=== PATIENT | male | born 1935 | race Caucasian/White ===

== ENCOUNTER 2016-08-31 11:18 | Observation (INO) | payer OTHER, MEDICARE ==
[~2016-08-31] VITALS: Ht 180.3 cm; Wt 99.8 kg
[~2016-08-31 11:18] MED LIST: AMLODIPINE BES2.5 MG PO; ASPIR 8181 MG PO; CO-Q-10 100 MG-1 SGL PO; FINASTERIDE5 MG PO; LEVOTHYROXIN0.112 M1 PO; LIPITOR40 M1 PO; LISINOPRIL10 MG PO
--- NOTE | 2016-08-31 11:25 | NUR ---
PT WAS HAVING REHAB AT HOME WHEN HE HAD A SYNCOPAL EPISODE. PER THERAPY THEY TOLD EMS THAT PT HAD TO EPISODES OF SEIZURE LIKE ACTIVITY WHIL LYING ON THE GROUND. PT DID NOT FALL HE WAS GENTLY HELPED TO THE FLOOR. PT DID NOT HIT HIS HEAD AND DOES NOT REMEMBER THE EPISODE. PT ARRIVES ALERT AND ORIENTED OFFERS NO COMPLAINTS.
--- NOTE | 2016-08-31 11:28 | NUR ---
PT STATSE HE HAS BEEN HOME FROM THE HOSPITAL SINCE SUNDAY AND HAS BEEN GETTING PHYSICAL THERAPY AT HOME PT STATES THIS IS THE FIRST TIME HE HAD TO MARCH IN PLACE AND HE STATES HE DID GET DIZZY
--- NOTE | 2016-08-31 11:47 | ED AMS/SEIZURE/WEAK/DIZZY ---
History of Present Illness General Chief Complaint: Syncope and Near-Syncope Stated Complaint: BIBA SYNCOPE Source: patient, family, old records, EMS Exam Limitations: no limitations Vital Signs & Intake/Output Vital Signs & Intake/Output Vital Signs Date Time Temp Pulse Resp B/P Pulse O2 O2 Flow FiO2 Ox Delivery Rate 09/01 1122 76 122/62 ED Intake and Output 09/02 0000 09/01 1200 Intake Total 600 Output Total 900 Balance -300 Intake, IV 500 Intake, Oral 100 Number 0 Bowel Movements Output, Urine 900 Allergies Coded Allergies: No Known Allergies (08/31/16) Reconcile Medications Aspirin (Ecotrin) 81 MG TABLET.DR 1 TAB PO DAILY BLOOD (Reported) Atorvastatin Calcium (Lipitor) 40 MG TABLET 1 TAB PO QPM CHOLESTEROL ( Reported) Finasteride 5 MG TABLET 1 TAB PO DAILY PROSTATE (Reported) Levothyroxine Sodium 0.112 MG TAB 1 TAB PO DAILY AC THYROIDECTOMY (Reported) Lisinopril 10 MG TABLET 1 TAB PO DAILY BP (Reported) Methocarbamol (Robaxin-750) 750 MG TABLET 1 TAB PO Q6-PRN PRN MUSCLE SPASMS ( Reported) Oxycodone HCl 5 MG TABLET 1 TAB PO BIDP PRN PAIN (Reported) Tramadol HCl 50 MG TABLET 1 TAB PO BIDP PRN PAIN (Reported) Triage Note: PT WAS HAVING REHAB AT HOME WHEN HE HAD A SYNCOPAL EPISODE. PER THERAPY THEY TOLD EMS THAT PT HAD TO EPISODES OF SEIZURE LIKE ACTIVITY WHIL LYING ON THE GROUND. PT DID NOT FALL HE WAS GENTLY HELPED TO THE FLOOR. PT DID NOT HIT HIS HEAD AND DOES NOT REMEMBER THE EPISODE. PT ARRIVES ALERT AND ORIENTED OFFERS NO COMPLAINTS. Triage Nurses Notes Reviewed? yes HPI: Patient presents for evaluation of an episode of weakness and dizziness. Patient states that he was doing leg exercises status post right knee replacement when he began feeling very lightheaded. That seemed to pass but he had another more severe episode while talking to the physical therapist and his . He laid down and blood pressure was checked by the physical therapist. Blood pressure was extremely low. At that point the patient had 2-3 episodes of seizure-like activity with no postictal phase. He has had 4 similar episodes in his past history. The knee surgery was 8 days ago. Patient's noted that he had a fever of 100.4 yesterday and also didn't seem to be himself. No associated cold symptoms dysuria or productive cough. Past History Travel History Traveled to [place] past 21 day No Medical History Any Pertinent Medical History? see below for history Neurological: PREVIOUS SYNCOPE X 1 Cardiovascular: hypertension, HIGH CHOLESTEROL Endocrine: NONE (HYPOTHYROIDISM) [employer]ES [employer] CASUALTY INSURANCE/Reproductive: ENLARGED PROSTATE Surgical History Surgical History: non-contributory Psychosocial History What is your primary language Burkin[place] Tobacco Use: Never used ETOH Use: occasional use Illicit Drug Use: denies illicit drug use Family History Hx Contributory? No Review of Systems Review of Systems Constitutional: Reports: no symptoms. EENTM: Reports: no symptoms. Respiratory: Reports: no symptoms. Cardiovascular: Reports: no symptoms. GI: Reports: no symptoms. Genitourinary: Reports: no symptoms. Musculoskeletal: Reports: no symptoms. Skin: Reports: no symptoms. Neurological/Psychological: Reports: no symptoms. Hematologic/Endocrine: Reports: no symptoms. Immunologic/Allergic: Reports: no symptoms. All Other Systems: Reviewed and Negative Physical Exam Physical Exam General Appearance: see below Comments: Gen.: Well-nourished, well-developed, no acute respiratory distress. Head: Normocephalic, atraumatic. Eyes: Normal inspection bilaterally Ears: Normal inspection bilaterally Nose: Normal inspection Throat/mouth : Moist mucosa Neck: Supple, full range of motion, no goiter, equal carotid pulses Heart: Regular rate and rhythm, no murmurs rubs or gallops Lungs: Clear to auscultation bilaterally with normal air entry Chest: Nontender Back: Normal range of motion Abdomen: Soft, nontender, nondistended, normal bowel sounds Extremities: Right knee: Dressing in place with slight erythema surrounding dressing. Diffuse right leg swelling (improving per ) Neurologic: Cranial nerves grossly intact, speech is clear Skin: warm and dry Psychiatric: Calm, cooperative, no apparent delusions or hallucinations Core Measures ACS in differential dx? No CVA/TIA Diagnosis: No Severe Sepsis Present: No Septic Shock Present: No Progress Differential Diagnosis: arrythmia, anemia, CVA/stroke, dehydration, hypoxia, pneumonia, PE Plan of Care: Orders Procedure Date/time Status Therapeutic Exercise X 15 09/01 UNK Complete MOBILITY D/C STATUS 09/01 UNK Complete MOBILITY GOAL STATUS 09/01 UNK Complete MOBILITY CURRENT STATUS 09/01 UNK Complete Gait Training, 15 Min 09/01 UNK Complete PT EVAL LOW COMPLEX 20 MIN 09/01 UNK Complete Discharge Patient 09/01 UNK Active Nursing Misc 09/01 UNK Active Diagnostic Imaging: Discussed w/RAD: Radiology Read, CT Scan. Radiology Impression: PATIENT: JACKELIN NG PRESENT AGE: 81 PATIENT ACCOUNT NO: [id number] : 35 LOCATION: [facility] ORDERING PHYSICIAN: ALIN KAM MD SERVICE DATE: 08/31/16 EXAM TYPE: CAT - CTA CHEST-PULMONARY EMBOLISM EXAMINATION: CT CHEST PE STUDY CLINICAL INFORMATION: Syncope. Hypotension. 8 days postop right knee replacement. Evaluate for pulmonary embolism. COMPARISON: CTA of the chest dated 02/06/2015. TECHNIQUE: Prior to contrast administration, localization images were obtained. After the administration of 120 mL of intravenous Optiray 350, multidetector CT volume acquisition of the chest was performed. 3-D postprocessing was performed with multiplanar reconstructions and MIP images obtained at the acquisition workstation. DLP: 617.61 mGy-cm. FINDINGS: Pulmonary arteries: The bolus timing on this study was acceptable for visualization of the pulmonary arterial tree. There are no intraluminal pulmonary arterial filling defects present to suggest pulmonary embolism in the main pulmonary artery, right and left main pulmonary artery, lobar and segmental branches. Lungs: Minimal bibasilar dependent atelectasis. The lungs are otherwise clear. No pulmonary nodules, masses, pleural effusion or pneumothorax. The central airways are patent. Aorta and heart: The heart is normal in size. There is no pericardial effusion. There is ectasia of the ascending aorta, which measures 3.9 cm in maximal AP diameter at the level of the right main pulmonary artery. Mild atherosclerotic calcifications of the aorta and severe three-vessel coronary artery calcifications are noted. Lymphatic structures: There is no lymphadenopathy. Upper abdomen: There are multiple variably sized low-attenuation masses seen throughout the right and left lobes of the liver, similar to the previous exam, most likely representing multiple small cysts. Largest of these is seen in hepatic segment 8, measuring 4.1 x 2.6 cm. There is a ill-defined 1.6 x 1.2 cm right adrenal low-attenuation mass, similar to the previous study, possibly representing a tiny lipid rich adenoma versus focal nodular hypertrophy. The left adrenal gland is unremarkable. Limited evaluation of the upper abdominal viscera demonstrates no focal abnormality. There is a small retrocardiac hiatal hernia. Bones: There are advanced degenerative changes in both shoulder joints. There is abnormal distention of the right subcoracoid bursa with fluid and a tiny calcific density, possibly representing a small loose body. There is also fluid distention of the right bicipital tendon sheath with small calcifications/ ossifications, consistent with small loose bodies. On the left side, there is a fluid collection seen in the subscapularis recess with associated loose bodies. There is also slight fluid distention of the left bicipital tendon sheath with associated small loose bodies. Multilevel mild vertebral spondylosis throughout the thoracic spine. No suspicious bone findings. IMPRESSION: 1. No evidence of pulmonary embolism. 2. 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 3. Severe coronary artery calcifications. 4. Multiple hepatic cysts and benign-appearing right adrenal mass, likely a small lipid rich adenoma versus focal nodular hypertrophy. 5. Small retrocardiac hiatal hernia. 6. 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 DICTATED BY: LUIS AVENDANO MD DATE/TIME DICTATED:08/31/161320 CHEMISTRY PHYSICS TEACHER:MARAL DATE/TIME TRANSCRIBED:08/31/161320 CONFIDENTIAL, DO NOT COPY WITHOUT APPROPRIATE AUTHORIZATION. <Electronically signed in Other Vendor System> SIGNED BY: LUIS AVENDANO MD 08/31/16 1344 CXR Impression: no acute abnormality Initial ED EKG: normal axis ( ), NSR, LBBB (INCOMPLETE) Prior EKG: changed Rhythm Strip: normal sinus rhythm Departure Departure Disposition: STILL A PATIENT Condition: Stable Clinical Impression Primary Impression: Syncope Qualifiers: Syncope type: unspecified Qualified Code: R55 - Syncope and collapse Referrals: SAJAN WHEELER MD (PCP/Family) Departure Forms: Customer Survey General Discharge Information Observation Note Spoke With: LINCOLN PAUL MD Physician Advisor Notified: MARK ARELLANO,CHRIS [address] Patient In: Non-ED OBS Care Area Rationale for Observation: My rational for observation is as follows: Patient has had a true syncopal episode of an unclear etiology. This raises the concern of a potential dysrhythmia with sudden drop in blood pressure to dangerous levels. Given this patient's advanced age and medical comorbidities I do not feel he is a good candidate for outpatient management at this time. Further syncopal episodes could place the patient at risk of injury. I feel he requires continuous cardiac monitoring for the possibility of dysrhythmia and serial blood pressure determinations, serial troponin determinations and consideration of cardiology and/or neurology consultations. 08/31/16 1234: Magnesium Cancelled 08/31/16 1138: Anion Gap 13, Estimated GFR > 60, BUN/Creatinine Ratio 16.0, Glucose 158 H, Calcium 8.5, Magnesium 2.3, Total Bilirubin 1.2, AST 24, ALT 27, Alkaline Phosphatase 58, Troponin I < 0.01, Total Protein 6.1 L, Albumin 3.3 L, Globulin 2.8, Albumin/Globulin Ratio 1.2, CBC w Diff NO MAN DIFF REQ, RBC 3.52 L, MCV 92.1, MCH 30.9, RDW 13.3, MPV 7.8, Gran % 72.5, Lymphocytes % 15.1 L, Monocytes % 8.3, Eosinophils % 3.6, Basophils % 0.5, Absolute Granulocytes 4.5, Absolute Lymphocytes 0.9 L, Absolute Monocytes 0.5, Absolute Eosinophils 0.2, Absolute Basophils 0, PUBS MCHC 33.5 Microbiology 08/31 1426 URINE ROUT: Urine Culture - RECD 08/31 1357 BLOOD: Blood Culture - RECD 08/31 1335 BLOOD: Blood Culture - RECD Diagnostic Imaging: Discussed w/RAD: CT Scan. Initial ED EKG: normal axis ( ), NSR, LBBB (INCOMPLETE) Prior EKG: changed Rhythm Strip: normal sinus rhythm Departure Departure Disposition: STILL A PATIENT Condition: Stable Clinical Impression Primary Impression: Syncope Qualifiers: Syncope type: unspecified Qualified Code: R55 - Syncope and collapse Referrals: LIAM ARELLANO,SAJAN Mcgowan (PCP/Family) Departure Forms: Customer Survey General Discharge Information Observation Note Spoke With: HUMBERTO ARELLANO,LINCOLN Physician Advisor Notified: MARK ARELLANO,CHRIS [address] Patient In: Non-ED OBS Care Area Rationale for Observation: My rational for observation is as follows: Patient has had a true syncopal episode of an unclear etiology. This raises the concern of a potential dysrhythmia with sudden drop in blood pressure to dangerous levels. Given this patient's advanced age and medical comorbidities I do not feel he is a good candidate for outpatient management at this time. Further syncopal episodes could place the patient at risk of injury. I feel he requires continuous cardiac monitoring for the possibility of dysrhythmia and serial blood pressure determinations, serial troponin determinations and consideration of cardiology and/or neurology consultations.
[2016-08-31 11:49] LABS: ABSOLUTE BASOPHIL COUNT 0 /CUMM (0.0-0.2); ABSOLUTE EOSINOPHIL COUNT 0.2 /CUMM (0.0-0.7); ABSOLUTE GRANULOCYTE CT 4.5 /CUMM (1.4-6.5); ABSOLUTE LYMPH COUNT 0.9 /CUMM (1.2-3.4); ABSOLUTE MONOCYTE COUNT 0.5 /CUMM (0.10-0.60); BASOPHIL % 0.5 % (0.0-2.0); EOSINOPHIL % 3.6 % (0-5); HEMATOCRIT 32.4 % (42-52); MEAN CORPUSCULAR HGB 30.9 PG (27.0-31.0); MEAN CORPUSCULAR HGB CONC 33.5 G/DL (33.0-37.0); MEAN CORPUSCULAR VOLUME 92.1 FL (80.0-94.0); MEAN PLATELET VOLUME 7.8 FL (7.4-10.4); PLATELET COUNT 178 /CUMM (130-400); RBC DISTRIBUTION WIDTH 13.3 % (11.5-14.5); RED BLOOD CELL CT 3.52 /CUMM (4.70-6.10); WHITE BLOOD CELL COUNT 6.3 /CUMM (4.8-10.8)
[2016-08-31 11:51] LABS: GRANULOCYTE % 72.5 % (42.2-75.2)
--- NOTE | 2016-08-31 11:58 | NUR ---
PCXR AT BEDSIDE
--- NOTE | 2016-08-31 12:07 | NUR ---
PT ONTO BEDSIDE COMMODE WITH ASSIST OF 1. OF PT REMAINS IN ROOM WITH PT.
[2016-08-31] MEDS ORDERED: ROBAXIN-750750 M1 PO (12:21)
[2016-08-31] MEDS ORDERED: OXYCODONE HCL5 M1 PO (12:21)
[2016-08-31] MEDS ORDERED: TRAMADOL HCL50 M1 PO (12:21)
--- NOTE | 2016-08-31 12:28 | RADIOLOGY REPORT ---
EXAMINATION: XR PORTABLE CHEST CLINICAL INFORMATION: This is an 81-year-old male with syncope. COMPARISON: Comparison is made to a CT scan of the chest dated 02/06/2015 and a chest x-ray dated 02/05/2015. TECHNIQUE: Portable view of the chest was obtained. A single AP semierect view was obtained. FINDINGS: No pneumothorax is seen. No pleural effusion is identified. No pulmonary consolidation is identified. The pulmonary vascularity appears within normal limits for the technique. IMPRESSION: No active disease on this portable study.
--- NOTE | 2016-08-31 13:44 | CT SCAN REPORT ---
EXAMINATION: CT CHEST PE STUDY CLINICAL INFORMATION: Syncope. Hypotension. 8 days postop right knee replacement. Evaluate for pulmonary embolism. COMPARISON: CTA of the chest dated 02/06/2015. TECHNIQUE: Prior to contrast administration, localization images were obtained. After the administration of 120 mL of intravenous Optiray 350, multidetector CT volume acquisition of the chest was performed. 3-D postprocessing was performed with multiplanar reconstructions and MIP images obtained at the acquisition workstation. DLP: 617.61 mGy-cm. FINDINGS: Pulmonary arteries: The bolus timing on this study was acceptable for visualization of the pulmonary arterial tree. There are no intraluminal pulmonary arterial filling defects present to suggest pulmonary embolism in the main pulmonary artery, right and left main pulmonary artery, lobar and segmental branches. Lungs: Minimal bibasilar dependent atelectasis. The lungs are otherwise clear. No pulmonary nodules, masses, pleural effusion or pneumothorax. The central airways are patent. Aorta and heart: The heart is normal in size. There is no pericardial effusion. There is ectasia of the ascending aorta, which measures 3.9 cm in maximal AP diameter at the level of the right main pulmonary artery. Mild atherosclerotic calcifications of the aorta and severe three-vessel coronary artery calcifications are noted. Lymphatic structures: There is no lymphadenopathy. Upper abdomen: There are multiple variably sized low-attenuation masses seen throughout the right and left lobes of the liver, similar to the previous exam, most likely representing multiple small cysts. Largest of these is seen in hepatic segment 8, measuring 4.1 x 2.6 cm. There is a ill-defined 1.6 x 1.2 cm right adrenal low-attenuation mass, similar to the previous study, possibly representing a tiny lipid rich adenoma versus focal nodular hypertrophy. The left adrenal gland is unremarkable. Limited evaluation of the upper abdominal viscera demonstrates no focal abnormality. There is a small retrocardiac hiatal hernia. Bones: There are advanced degenerative changes in both shoulder joints. There is abnormal distention of the right subcoracoid bursa with fluid and a tiny calcific density, possibly representing a small loose body. There is also fluid distention of the right bicipital tendon sheath with small calcifications/ossifications, consistent with small loose bodies. On the left side, there is a fluid collection seen in the subscapularis recess with associated loose bodies. There is also slight fluid distention of the left bicipital tendon sheath with associated small loose bodies. Multilevel mild vertebral spondylosis throughout the thoracic spine. No suspicious bone findings. IMPRESSION: 1. No evidence of pulmonary embolism. 2. 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 3. Severe coronary artery calcifications. 4. Multiple hepatic cysts and benign-appearing right adrenal mass, likely a small lipid rich adenoma versus focal nodular hypertrophy. 5. Small retrocardiac hiatal hernia. 6. 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
--- NOTE | 2016-08-31 14:37 | NUR ---
PT RESTING ON STRETCHER. ON HEART MONITOR. AT BEDSIDE.
--- NOTE | 2016-08-31 15:12 | History & Physical ---
LORRAINE ARELLANO,[facility] 08/31/16 1512: General Information and HPI MD Statement: I have seen and personally examined JACKELIN NG and documented this H&P. The patient is a 81 year old M who presented with a patient stated chief complaint of transient loss of consciousness while undergoing physical therapy. Source of Information: patient, family, old records Exam Limitations: no limitations History of Present Illness: This is an 81-year-old gentleman who has past medical history of hypertension, hypothyroidism, hyperlipidemia and who recently underwent right knee replacement on 08/23/2016, presented to the emergency department at [facility] on 2016 after experiencing questionable seizure-like activity. Much of the history was obtained from the patient's Mrs. Ng. At approximately 10:15 AM the patient was undergoing physical therapy exercises status post right knee replacement. At this time, the patient began to feel lightheaded and weak. He then sat on a chair where his blood where his reports that he drifted in and out of consciousness. He was responsive although not alert throughout this episode. His blood pressure continued to decline. The patient's stated that the lowest blood pressure recorded was 49/30. During this episode the of the patient states he experienced no changes in speech did not have any evidence of any motor or facial abnormalities. He did not have any bowel or bladder incontinence. And he did not have any episodes of any head trauma. Over the last few days the of the patient reports that he has been febrile and has a temperature of approximately 104F. She also states that the patient has had a few episodes of delirium especially in the early evening. Patient does report of mild right knee discomfort. Discomfort is rated at a 3 out of 10. Responds well to pain medication. The patient denies any chills, nausea, vomiting or chest pain or chest discomfort. He denies any orthopnea or palpitations. Patient's PCP is Dr. Thapa. Allergies/Medications Allergies: Coded Allergies: No Known Allergies (08/31/16) Home Med list Aspirin (Ecotrin) 81 MG TABLET.DR 1 TAB PO DAILY BLOOD (Reported) Atorvastatin Calcium (Lipitor) 40 MG TABLET 1 TAB PO QPM CHOLESTEROL ( Reported) Finasteride 5 MG TABLET 1 TAB PO DAILY PROSTATE (Reported) Levothyroxine Sodium 0.112 MG TAB 1 TAB PO DAILY AC THYROIDECTOMY (Reported) Lisinopril 10 MG TABLET 1 TAB PO DAILY BP (Reported) Methocarbamol (Robaxin-750) 750 MG TABLET 1 TAB PO Q6-PRN PRN MUSCLE SPASMS ( Reported) Oxycodone HCl 5 MG TABLET 1 TAB PO BIDP PRN PAIN (Reported) Tramadol HCl 50 MG TABLET 1 TAB PO BIDP PRN PAIN (Reported) Compliance With Home Meds: GOOD Past History Travel History Traveled to [place] past 21 day No Medical History Neurological: PREVIOUS SYNCOPE X 1 Cardiovascular: hypertension, HIGH CHOLESTEROL Endocrine: NONE (HYPOTHYROIDISM) WATER PURIFIER/Reproductive: ENLARGED PROSTATE Surgical History Surgical History: non-contributory Past Family/Social History Psychosocial History Where do you live? Home Who Do You Live With? spouse Services at Home: None Primary Language: Armenian Smoking Status: Never Smoked ETOH Use: occasional use Illicit Drug Use: denies illicit drug use Functional Ability ADLs Independent: dressing, eating, toileting, bathing. Ambulation: walker IADLs Independent: shopping, housework, finances, food prep, telephone, transportation , medication admin. 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 Denies: chills, malaise. Cardiovascular: Denies: chest pain, orthopena, palpitations, peripheral edema. Respiratory: Denies: cough, hemoptysis, orthopnea, short of breath, sputum production, stridor. GI: Reports: constipation. Denies: abdominal pain, bloating, diarrhea, distention, bowel incontinence, melena. Genitourinary: Denies: discharge, dysuria, frequency, hematuria, hesitation. Musculoskeletal: Reports: joint pain. Skin: Denies: change in skin color, change in hair/nails, erythema. Exam & Diagnostic Data Last 24 Hrs of Vital Signs/I&O Vital Signs Date Time Temp Pulse Resp B/P Pulse O2 O2 Flow FiO2 Ox Delivery Rate 08/31 1330 97.0 75 18 116/71 96 08/31 1126 96.7 79 18 130/60 96 Room Air Intake & Output 08/31 1600 08/31 0800 08/31 0000 Intake Total 0 Output Total Balance 0 Intake, Oral 0 Patient 99.79 kg Weight Physical Exam General Appearance Alert, Oriented X3, Cooperative Lymphatic Cervical nl Cardiovascular Normal S1, Normal S2 Lungs Clear to Auscultation Abdomen Normal Bowel Sounds, Soft, No Tenderness Neurological Normal Gait, Normal Speech Extremities No Clubbing, No Cyanosis, Edema RLE Last 24 Hrs of Labs/[place]: Laboratory Tests 08/31/16 1426: Urine Color YEL, Urine Clarity CLEAR, Urine pH 6.0, Ur Specific [place] 1.010, Urine Protein NEG, Urine Ketones NEG, Urine Nitrite NEG, Urine Bilirubin NEG, Urine Urobilinogen 0.2, Ur Leukocyte Esterase NEG, Ur Microscopic EXAM NOT REQUIRED, Urine Hemoglobin NEG, Urine Glucose NEG 08/31/16 1335: Magnesium 2.3, Troponin I < 0.01 08/31/16 1234: Magnesium Cancelled 08/31/16 1138: Anion Gap 13, Estimated GFR > 60, BUN/Creatinine Ratio 16.0, Glucose 158 H, Calcium 8.5, Magnesium 2.3, Total Bilirubin 1.2, AST 24, ALT 27, Alkaline Phosphatase 58, Troponin I < 0.01, Total Protein 6.1 L, Albumin 3.3 L, Globulin 2.8, Albumin/Globulin Ratio 1.2, CBC w Diff NO MAN DIFF REQ, RBC 3.52 L, MCV 92.1, MCH 30.9, RDW 13.3, MPV 7.8, Gran % 72.5, Lymphocytes % 15.1 L, Monocytes % 8.3, Eosinophils % 3.6, Basophils % 0.5, Absolute Granulocytes 4.5, Absolute Lymphocytes 0.9 L, Absolute Monocytes 0.5, Absolute Eosinophils 0.2, Absolute Basophils 0, PUBS MCHC 33.5 Microbiology 08/31 1426 URINE ROUT: Urine Culture - RECD 08/31 1357 BLOOD: Blood Culture - RECD 08/31 1335 BLOOD: Blood Culture - RECD Diagnostic Data EKG Results Sinus rhythm rate of 76. QTC 446. Questionable ST changes V3 CXR Results SERVICE DATE: 08/31/16-113 EXAM TYPE: RAD - XRY-PORTABLE CHEST XRAY EXAMINATION: XR PORTABLE CHEST CLINICAL INFORMATION: This is an 81-year-old male with syncope. COMPARISON: Comparison is made to a CT scan of the chest dated 02/06/2015 and a chest x-ray dated 02/05/2015. TECHNIQUE: Portable view of the chest was obtained. A single AP semierect view was obtained. FINDINGS: No pneumothorax is seen. No pleural effusion is identified. No pulmonary consolidation is identified. The pulmonary vascularity appears within normal limits for the technique. IMPRESSION: No active disease on this portable study. DICTATED BY: SABIHA PEREZ MD Other Results SERVICE DATE: 08/31/16 EXAM TYPE: CAT - CTA CHEST-PULMONARY EMBOLISM EXAMINATION: CT CHEST PE STUDY CLINICAL INFORMATION: Syncope. Hypotension. 8 days postop right knee replacement. Evaluate for pulmonary embolism. COMPARISON: CTA of the chest dated 02/06/2015. TECHNIQUE: Prior to contrast administration, localization images were obtained. After the administration of 120 mL of intravenous Optiray 350, multidetector CT volume acquisition of the chest was performed. 3-D postprocessing was performed with multiplanar reconstructions and MIP images obtained at the acquisition workstation. DLP: 617.61 mGy-cm. FINDINGS: Pulmonary arteries: The bolus timing on this study was acceptable for visualization of the pulmonary arterial tree. There are no intraluminal pulmonary arterial filling defects present to suggest pulmonary embolism in the main pulmonary artery, right and left main pulmonary artery, lobar and segmental branches. Lungs: Minimal bibasilar dependent atelectasis. The lungs are otherwise clear. No pulmonary nodules, masses, pleural effusion or pneumothorax. The central airways are patent. Aorta and heart: The heart is normal in size. There is no pericardial effusion. There is ectasia of the ascending aorta, which measures 3.9 cm in maximal AP diameter at the level of the right main pulmonary artery. Mild atherosclerotic calcifications of the aorta and severe three-vessel coronary artery calcifications are noted. Lymphatic structures: There is no lymphadenopathy. Upper abdomen: There are multiple variably sized low-attenuation masses seen throughout the right and left lobes of the liver, similar to the previous exam, most likely representing multiple small cysts. Largest of these is seen in hepatic segment 8, measuring 4.1 x 2.6 cm. There is a ill-defined 1.6 x 1.2 cm right adrenal low-attenuation mass, similar to the previous study, possibly representing a tiny lipid rich adenoma versus focal nodular hypertrophy. The left adrenal gland is unremarkable. Limited evaluation of the upper abdominal viscera demonstrates no focal abnormality. There is a small retrocardiac hiatal hernia. Bones: There are advanced degenerative changes in both shoulder joints. There is abnormal distention of the right subcoracoid bursa with fluid and a tiny calcific density, possibly representing a small loose body. There is also fluid distention of the right bicipital tendon sheath with small calcifications/ossifications, consistent with small loose bodies. On the left side, there is a fluid collection seen in the subscapularis recess with associated loose bodies. There is also slight fluid distention of the left bicipital tendon sheath with associated small loose bodies. Multilevel mild vertebral spondylosis throughout the thoracic spine. No suspicious bone findings. IMPRESSION: 1. No evidence of pulmonary embolism. 2. 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 3. Severe coronary artery calcifications. 4. Multiple hepatic cysts and benign-appearing right adrenal mass, likely a small lipid rich adenoma versus focal nodular hypertrophy. 5. Small retrocardiac hiatal hernia. 6. 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 DICTATED BY: JUAN ALBERTO ARELLANO,LUIS Beckman Assessment/Plan Assessment: This is a 81-year-old gentleman with past medical history of hypothyroidism, hyperlipidemia and hypertension who presented to the emergency department with decreased level of consciousness when undergoing an intensive physical therapy session. #Syncopal event likely caused by vasovagal episode Admit patient to telemetry for continuous monitoring. Monitor for any arrhythmias. Given the patient's recent surgical history as well as prolonged immobility and sure a PE is ruled out. Consider venous Doppler if patient continues to experience hypoxia. Neurology consult obtained. Bedside swallow evaluation in ED showed no abnormalities. Neurochecks every 6 hours. Continue atorvastatin 80 mg. Aspirin 81 mg in a.m. Carotid ultrasound to rule out any stenosis. Check orthostatics. #Right knee pain status post recent knee replacement. Owing to the fact that the patient recently got a knee replacement, continue pain medications Tylenol when necessary as needed. Patient states he avoids opiate medications given side effect profile. Consider PT and OT eval in a.m. #History coronary artery disease and mild aortic dilatation Serial troponins and EKG. Initial EKG less than 0.01, 0.01, 0.01. No signs of cardiac ischemia. Cardiology consult in a.m. Echocardiogram to assess left ventricular function and output. #History of hypothyroidism Check TSH and free T4. Continue levothyroxine #History of hypertension Continue Lee . Maintain permissive hypertension for now do not cause blood pressure to come down below 140/90. #History of BPH Continue finasteride #DVT prophylaxis Lovenox #Diet Heart healthy #Code Full code As Ranked By This Provider Problem List: 1. Syncope Qualifiers Syncope type: unspecified Qualified Code: R55 - Syncope and collapse 2. Orthostatic hypotension 3. Hypertension 4. BPH (benign prostatic hyperplasia) 5. Hyperlipidemia 6. Hypothyroid Core Measures/Miscellaneous Acute Coronary Syndrome ACS Diagnosis: No Cerebrovascular Accident CVA/TIA Diagnosis: No Congestive Heart Failure CHF Diagnosis: No Venous Thromboembolism VTE Risk Factors: Age > 40 VTE Prophylaxis Ordered Inpt: [facility]- [facility] prophylaxis d/t: No contraindications No VTE Pharm Prophylaxis d/t: No contraindications VTE Diagnosis: No VTE Type: NONE VTE Confirmed by (Test): NONE Severe Sepsis Severe Sepsis Present: No Septic Shock Septic Shock Present: No Miscellaneous Documentation Attending Case Discussed With: ABDULKADIR CONNER MD Primary Care Physician: SAJAN THAPA MD Patient sees these Specialists Dr Morales Level of Patient Care: Telemetry ABDULKADIR CONNER MD 08/31/16 2311: Attending MD Review Statement Attending Statement Attending Statement: examined this patient, discuss w/resident/PA/CONCRETE SCULPTOR, agreed w/resident/PA/CONCRETE SCULPTOR, discussed with family, reviewed EMR data (avail), discussed with nursing, reviewed images, amended to note Attending Assessment/Plan: The patient is an 81 yo male with h/o HTN, HL, and hypothyroidism who is status post recent right TKR (08/23/16). He presented in the ED after a syncopal event that occurred during physical therapy at home. The patient had prior sessions without event. He states that the therapist was attempting a new movement. He describes feeling transiently lightheaded and then ther was transient loss of conscious. He states he was only out for a few seconds. Denies headache, fever, chills, dyspnea, cough, abd pain. Continues to have mild right leg swelling. Physical Exam: VS: T 97, P 75, R 18, BP 116/71, PO 96% RA HEENT: eyes- , EOMI corbin- moist mucosa, no lesions Neck: no bruits or JVD Chest: clear Cor: RR, nl S1, S2 w/o murm Abd: BS+, soft, NT Ext: mild RLE edema (compared to left)- s/p TKR Neuro: alert & oriented x 3, no focal motions. Labs/Tests- as above. Impression:Plan: #Syncopal Event- the patient describes transient loss of conscious after working with physical therapist at home. The patient described lightheadedness. EKG w/o abnormality. No focal neuro findings at present. The patient states no bladder or bowel incontinence, however PT as per ED note suggested "seizure like" activity? Pulmonary embolism is in differential (1 week post op- not on anticoagulation). Not likely to represent seizure, most likely some tonic movements related to vasovagal syncope Plan: Admit to Telemetry Observation- observe for arrhythmia. Neuro checks Q4h Swallow eval done in ED- OK to eat Neurology evaluation- ? EEG (doubt seizure)- will defer to outpatient if stable over night. Continue Aspirin. Cardiology evaluation Dr. Morales in morning. #S/P Right TKR- some mild pain/edema- only on ASA therapy. Venous US and CTPA negative for clot. Plan: Continue PT as inpatient. #Hyperlipidemia- on Atorvastatin. Plan: Continue Atorvastatin. #HTN- on Lisinopril. BP good. Plan: Continue Lisinopril. #BPH- on finasteride. Plan: Continue finasteride. #Hypothyroid- clinically euthyroid on Levothyroxine. Plan: Continue Levothyroxine.
--- NOTE | 2016-08-31 15:34 | NUR ---
NS INFUSING AT 100ML/HR.
--- NOTE | 2016-08-31 15:41 | NUR ---
PT TAKEN TO ULTRASOUND AT THIS TIME VIA STRETCHER.
--- NOTE | 2016-08-31 16:00 | NUR ---
PT RETURNED TO ROOM. HOUSESTAFF AT BEDSIDE.
[2016-08-31 16:34] VITALS: BP 121/57
--- NOTE | 2016-08-31 16:56 | NUR ---
FAMILY AT BEDSIDE.
--- NOTE | 2016-08-31 17:16 | ULTRASOUND REPORT ---
EXAMINATION: DUPLEX BILATERAL CAROTID ULTRASOUND CLINICAL INFORMATION: Syncope COMPARISON: None. TECHNIQUE: Duplex bilateral carotid US was performed using real-time ultrasound and Doppler techniques (integrating B-mode 2D vascular images, Doppler spectral analysis and color flow Doppler imaging). These techniques were utilized to interrogate the extracranial carotid and vertebral arteries bilaterally. The degree of stenosis is based off criteria similar to NASCET. FINDINGS: 1. On the right: No plaque is present at the carotid bifurcation and all velocity measurements are normal and do not suggest a stenosis of greater than 50% diameter reduction in the right ICA. The vertebral artery is patent demonstrating antegrade flow. The external carotid on the right shows no significant stenosis. 2. On the left: Plaque is present at the carotid bifurcation but velocity measurements are normal and do not suggest a stenosis of greater than 50% diameter reduction in the left ICA. The vertebral artery is patent demonstrating antegrade flow. The external carotid artery on the left shows no significant stenosis. IMPRESSION: There is plaque present in the left internal carotid artery with normal velocities consistent with a minimal 0-49% stenosis. The right side is normal with no plaque seen.
--- NOTE | 2016-08-31 18:02 | NUR ---
SST SENT TO LAB.
--- NOTE | 2016-08-31 18:22 | NUR ---
DIETARY CALLED FOR DINNER TRAY.
--- NOTE | 2016-08-31 18:50 | NUR ---
FOOD TRAY DELIVERED.
--- NOTE | 2016-08-31 19:19 | NUR ---
REPORT GIVEN TO PAN ALONSO.
--- NOTE | 2016-08-31 20:06 | NUR ---
PT C/O /10 LEG PAIN. PT MEDICATED WITH 1 MG MORPHINE PER ORDER.
--- NOTE | 2016-08-31 21:29 | NUR ---
PT HAS BED ASSIGNMENT 178-1
--- NOTE | 2016-08-31 22:10 | NUR ---
PT REPORTS PAIN DECREASING AFTER BEING MEDICATED. PT APPEARS COMFORTABLE. NO APPARENT DISTRESS
[2016-08-31 22:43] VITALS: BP 122/60
--- NOTE | 2016-08-31 23:10 | Admission Certification ---
Admission Certification Certification Statement - As attending physician, I certify that at the time of - admission, based on clinical presentation, severity of - symptoms, need for further diagnostic testing and - therapeutic interventions, and risk of adverse outcomes - without in-hospital treatment, in my clinical assessment, - this patient requires an acute hospital stay for a minimum - of two nights or longer. I have also considered psychsocial - factors such as support system, advanced age, financial - issues, cognitive issues, and failed out-patient treatments, - past re-admission history, safety of patient, and lack of - compliance as applicable. Specific rationale supporting this admission is: The patient is s/p transient syncope at home when working with PT. S/P recent right TKR. Needs observation for further events, arrhytmias.
--- NOTE | 2016-08-31 23:36 | NUR ---
PT ARRIVED AT ABOUT 2225 FROM ED. HE IS A+OX3. DENIES PAIN. LS CTA. NIH SCORE IS ZERO. NO FACIAL DROOP NOTED. +CMS TO RLE. DRESSING TO R KNEE IS CDI. BED ALARM PLACED FOR SAFETY HOWEVER PT DENIES DIZZINESS. NPO PER ORDERS. URINAL GIVEN. CALL LIGHT IN REACH.
[2016-09-01 00:14] VITALS: BP 108/68
--- NOTE | 2016-09-01 06:40 | PN- Housestaff ---
[facility]LLAN[facility] 09/01/16 0639: Subjective Follow-up For: Syncope likely vasovagal versus orthostatic. Hypothyroidism Tele-Events Since Last Visit: Sinus 1 deg HB 68-78 UT interval 0.24 Few PVC overnight. Subjective: Mr Ng was seen and examined this morning. He is resting comfortably on the chair beside his bed. He reports no acute issues overnight. Denies any episodes of lightheadedness and or transient loss of consciousness. Patient states that he was able to sleep well. This morning the patient was able to ambulate with PT and denies any lightheadedness, chest pain or discomfort. The patient denies any fever, chills, nausea, vomiting. He expresses his desire to be discharged as soon as possible. Review of Systems Constitutional: Reports: see HPI. Denies: chills, diaphoresis, fever, malaise. Objective Last 24 Hrs of Vital Signs/I&O Vital Signs Date Time Temp Pulse Resp B/P Pulse O2 O2 Flow FiO2 Ox Delivery Rate 09/01 0805 98.3 68 20 122/64 95 Room Air 09/01 0014 98.1 68 20 108/68 95 Room Air 08/31 2243 98.5 69 20 122/60 95 Room Air 08/31 2126 98.1 73 20 121/68 96 Room Air 08/31 2006 96.9 61 16 110/65 96 08/31 1634 71 121/57 08/31 1634 98.5 71 16 121/57 95 Room Air 08/31 1330 97.0 75 18 116/71 96 08/31 1126 96.7 79 18 130/60 96 Room Air Intake & Output 09/01 1600 09/01 0800 09/01 0000 Intake Total 600 60 Output Total 900 220 Balance -300 -160 Intake, IV 500 Intake, Oral 100 60 Number 0 Bowel Movements Output, Urine 900 220 Patient 99.79 kg Weight Physical Exam General Appearance: Alert, Oriented X3, Cooperative, No Acute Distress Lymphatic: Cervical nl Cardiovascular: Regular Rate, Normal S1, Normal S2, No Murmurs Lungs: Clear to Auscultation Abdomen: Normal Bowel Sounds, Soft, No Tenderness, No Hepatospenomegaly Neurological: Normal Gait, Normal Speech, Edema RLE 2+ Current Medications: Current Medications Sig/[place] Start time Last Medication Dose Route Stop Time Status Admin Acetaminophen 650 MG Q6P PRN 08/31 1515 AC PO Acetaminophen/ 1 TAB Q6P PRN 08/31 1515 AC Hydrocodone Bitart PO Amlodipine Besylate 2.5 MG DAILY 09/01 1000 AC PO Aspirin Buffered 81 MG DAILY 09/01 1000 AC PO Atorvastatin Calcium 40 MG QPM 08/31 2200 AC 08/31 PO 2256 Diphenhydramine HCl 25 MG Q6P PRN 08/31 1515 AC PO Docusate Sodium 100 MG BID 08/31 2200 AC 08/31 PO 2256 Enoxaparin Sodium 40 MG DAILY 09/01 1000 AC SC Finasteride 5 MG DAILY 09/01 1000 AC PO Levothyroxine Sodium 0.112 MG DAILY AC 09/01 0700 AC 09/01 PO 0641 Lisinopril 10 MG DAILY 09/01 1000 AC PO Methocarbamol 750 MG Q6-PRN PRN 08/31 1530 AC PO Morphine Sulfate 0 .STK-MED ONE 08/31 2000 DC .ROUTE Morphine Sulfate 1 MG Q4P PRN 08/31 1515 AC 08/31 IV 2001 Polyethylene Glycol 17 GM AT BEDTIME 08/31 2200 AC PO Prochlorperazine 10 MG Q6P PRN 08/31 1515 AC IV Senna/Docusate Sodium 1 TAB AT BEDTIME 08/31 2200 AC 08/31 PO 2256 Sodium Chloride 1,000 ML ONCE ONE 08/31 1530 DC 08/31 IV 09/01 0129 1534 Last 24 Hrs of Lab/Colton Results Last 24 Hrs of Labs/Mics: Laboratory Tests 09/01/16 0610: Anion Gap 10, Estimated GFR > 60, BUN/Creatinine Ratio 16.7, Magnesium 2.3 08/31/16 1757: Troponin I < 0.01 08/31/16 1426: Urine Color YEL, Urine Clarity CLEAR, Urine pH 6.0, Ur Specific [place] 1.010, Urine Protein NEG, Urine Ketones NEG, Urine Nitrite NEG, Urine Bilirubin NEG, Urine Urobilinogen 0.2, Ur Leukocyte Esterase NEG, Ur Microscopic EXAM NOT REQUIRED, Urine Hemoglobin NEG, Urine Glucose NEG 08/31/16 1335: Magnesium 2.3, Troponin I < 0.01 08/31/16 1234: Magnesium Cancelled 08/31/16 1138: Anion Gap 13, Estimated GFR > 60, BUN/Creatinine Ratio 16.0, Glucose 158 H, Calcium 8.5, Magnesium 2.3, Total Bilirubin 1.2, AST 24, ALT 27, Alkaline Phosphatase 58, Troponin I < 0.01, Total Protein 6.1 L, Albumin 3.3 L, Globulin 2.8, Albumin/Globulin Ratio 1.2, CBC w Diff NO MAN DIFF REQ, RBC 3.52 L, MCV 92.1, MCH 30.9, RDW 13.3, MPV 7.8, Gran % 72.5, Lymphocytes % 15.1 L, Monocytes % 8.3, Eosinophils % 3.6, Basophils % 0.5, Absolute Granulocytes 4.5, Absolute Lymphocytes 0.9 L, Absolute Monocytes 0.5, Absolute Eosinophils 0.2, Absolute Basophils 0, PUBS MCHC 33.5 Microbiology 08/31 1426 URINE ROUT: Urine Culture - RECD 08/31 1357 BLOOD: Blood Culture - RECD 08/31 1335 BLOOD: Blood Culture - RECD Orders Radiology Findings: PATIENT: JACKELIN NG PRESENT AGE: 81 PATIENT ACCOUNT NO: [id number] : 35 LOCATION: [facility] ORDERING PHYSICIAN: MARIAM ANGELO MD SERVICE DATE: 08/31/16- EXAM TYPE: US - [id number] DOPPLER EXAMINATION: DUPLEX BILATERAL CAROTID ULTRASOUND CLINICAL INFORMATION: Syncope COMPARISON: None. TECHNIQUE: Duplex bilateral carotid US was performed using real-time ultrasound and Doppler techniques (integrating B-mode 2D vascular images, Doppler spectral analysis and color flow Doppler imaging). These techniques were utilized to interrogate the extracranial carotid and vertebral arteries bilaterally. The degree of stenosis is based off criteria similar to NASCET. FINDINGS: 1. On the right: No plaque is present at the carotid bifurcation and all velocity measurements are normal and do not suggest a stenosis of greater than 50% diameter reduction in the right ICA. The vertebral artery is patent demonstrating antegrade flow. The external carotid on the right shows no significant stenosis. 2. On the left: Plaque is present at the carotid bifurcation but velocity measurements are normal and do not suggest a stenosis of greater than 50% diameter reduction in the left ICA. The vertebral artery is patent demonstrating antegrade flow. The external carotid artery on the left shows no significant stenosis. IMPRESSION: There is plaque present in the left internal carotid artery with normal velocities consistent with a minimal 0-49% stenosis. The right side is normal with no plaque seen. DICTATED BY: SHAKIRA REYNOLDS MD DATE/TIME DICTATED:08/31/161710 CLERICAL RECEPTIONIST:MRAAL DATE/TIME TRANSCRIBED:08/31/161710 CONFIDENTIAL, DO NOT COPY WITHOUT APPROPRIATE AUTHORIZATION. <Electronically signed in Other Vendor System> SIGNED BY: SHAKIRA REYNOLDS MD 08/31/16 8942 Assessment/Plan Assessment: This is a 81-year-old gentleman with past medical history of hypothyroidism, hyperlipidemia and hypertension who presented to the emergency department with decreased level of consciousness when undergoing an intensive physical therapy session. #Syncopal event likely caused by vasovagal episode No arrhythmias find overnight. Admit patient to telemetry for continuous monitoring. Monitor for any arrhythmias. Given the patient's recent surgical history as well as prolonged immobility and sure a PE is ruled out. Consider venous Doppler if patient continues to experience hypoxia. Neurology consult obtained. Neurochecks every 6 hours. Continue atorvastatin 80 mg. Aspirin 81 mg in a.m. Check orthostatics, patient was negative, when checking orthostatics. #Right knee pain status post recent knee replacement. Owing to the fact that the patient recently got a knee replacement, continue pain medications Tylenol when necessary as needed. Pain well-controlled this a.m. Patient states he avoids opiate medications given side effect profile. Consider PT patient was able to ambulate with physical therapy and did not have any episodes of syncope. #History coronary artery disease and mild aortic dilatation Serial troponins and EKG. Initial EKG less than 0.01, 0.01, 0.01. No signs of cardiac ischemia. Cardiology evaluated the patient and said he stable for discharge. No further inpatient workup needed. Patient will be advised to follow-up with the cardiology service in 1 week. #History of hypothyroidism Check TSH and free T4. Continue levothyroxine #History of hypertension Continue Lee, blood pressure well-controlled 122/64 #History of BPH Patient denies any symptoms of dysuria and/or pain. Continue finasteride #DVT prophylaxis Lovenox #Diet Heart healthy #Code Full code Problem List: 1. Syncope 2. Orthostatic hypotension Pain Ratin Pain Location: Right Knee Pain Goal: Remain pain free Pain Plan: tylenol PRN Tomorrow's Labs & Rationales: ABDULKADIR BEAVERS MD 09/01/16 1602: Attending MD Review Statement Attending Statement Attending MD Statement: examined this patient, discuss w/resident/PA/CLIENT SUPPORT REPRESENTATIVE, agreed w/resident/PA/CLIENT SUPPORT REPRESENTATIVE, reviewed EMR data (avail), discussed with nursing, discussed with case mgmt, amended to note Attending Assessment/Plan: The patient was seen and discussed with house staff. Appreciate Cardiology input. Unlikely to represent seizure- most likely some movements related to syncope.
[2016-09-01 08:05] VITALS: BP 122/64
--- NOTE | 2016-09-01 08:47 | Patient Discharge Instructions ---
Discharge Instructions General Discharge Information You were seen/treated for: Altered Mental Status/ Decrease in consciousness Watch for these problems: Fever, nausea, vomiting, chills, weakness, increased generalized edema. Palpitations. Chest pain. Shortness of breath. If you have any adverse reactions from any of the medications prescribed please inform your primary care physician and you may be required to come back to the emergency department. Thank you for letting us be part of your care. Special Instructions: Please follow-up with your primary care physician on 09/04/2016. This is for a post hospital discharge follow-up. Please follow-up with the taper and floater Dr Morales on 09/08/2016. We have provided you with a referral. You might be considered for additional testing. Please follow-up with the Neurologist Dr Mcneil on 09/15/2016. We have provided you with a referral. You might be considered for additional testing. Diet Continue normal diet: Yes Activity Full Activity/No Limits: No Activity Self Limited: Yes (As Tolerated) Acute Coronary Syndrome Inclusion Criteria At DC or during hospital stay patient has or had the following: ACS DIAGNOSIS No Discharge Core Measures Meds if any: Prescribed or Continued at Discharge Meds if any: NOT Prescribed or Continued at Discharge Congestive Heart Failure Inclusion Criteria At DC or during hospital stay patient has or had the following: CHF DIAGNOSIS No Discharge Core Measures Meds if any: Prescribed or Continued at Discharge Meds if any: NOT Prescribed or Continued at Discharge Cerebrovascular accident Inclusion Criteria At DC or during hospital stay patient has or had the following: CVA/TIA Diagnosis No Discharge Core Measures Meds if any: Prescribed or Continued at Discharge Meds if any: NOT Prescribed or Continued at Discharge Venous thromboembolism Inclusion Criteria VTE Diagnosis No VTE Type NONE VTE Confirmed by (Test) NONE Discharge Core Measures - Per Current guidelines, there needs to be overlap - treatment for the first 5 days of Warfarin therapy. - If discharged on Warfarin prior to 5 days of - overlap therapy, the patient will need to be - assessed for post discharge needs including - *Post discharge parental anticoagulation - *Warfarin and/or parental anticoagulation education - *Follow up date to check INR post discharge At least 5 days overlap therapy as Inpatient No Meds if any: Prescribed or Continued at Discharge Note: Overlap Therapy is Warfarin and Anticoagulant Meds if any: NOT Prescribed or Continued at Discharge
[2016-09-01 11:22] VITALS: BP 122/62
--- NOTE | 2016-09-01 12:33 | Cons- Cardiology ---
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 He recently underwent right TKR and was doing physical therapy at home. They asked him to try a new exercise by marching his feet. After this exercise he began to feel light headed and had a brief LOC, reported as a few seconds. Was noted to be hypotensive as well. No incontinence, might have had some occasional twitching movements. No confusion. Denied any chest pain, dyspnea, palpitations, AYOUB, slurred speech, visual changes, or focal weakness. No cough, PND, orthopnea. Feels at baseline now. He did have an episode of syncope 1 year ago in the setting of dehydration. Allergies/Medications Allergies: Coded Allergies: No Known Allergies (08/31/16) Home Med List: Aspirin (Ecotrin) 81 MG TABLET.DR 1 TAB PO DAILY BLOOD (Reported) Atorvastatin Calcium (Lipitor) 40 MG TABLET 1 TAB PO QPM CHOLESTEROL ( Reported) Finasteride 5 MG TABLET 1 TAB PO DAILY PROSTATE (Reported) Levothyroxine Sodium 0.112 MG TAB 1 TAB PO DAILY AC THYROIDECTOMY (Reported) Lisinopril 10 MG TABLET 1 TAB PO DAILY BP (Reported) Methocarbamol (Robaxin-750) 750 MG TABLET 1 TAB PO Q6-PRN PRN MUSCLE SPASMS ( Reported) Oxycodone HCl 5 MG TABLET 1 TAB PO BIDP PRN PAIN (Reported) Tramadol HCl 50 MG TABLET 1 TAB PO BIDP PRN PAIN (Reported) Current Medications: Current Medications Sig/[place] Start time Last Medication Dose Route Stop Time Status Admin Acetaminophen 650 MG Q6P PRN 08/31 1515 AC PO Acetaminophen/ 1 TAB Q6P PRN 08/31 1515 AC Hydrocodone Bitart PO Amlodipine Besylate 2.5 MG DAILY 09/01 1000 AC PO Aspirin Buffered 81 MG DAILY 09/01 1000 AC 09/01 PO 1121 Atorvastatin Calcium 40 MG QPM 08/31 2200 AC 08/31 PO 2256 Diphenhydramine HCl 25 MG Q6P PRN 01/12 1515 AC PO Docusate Sodium 100 MG BID 08/31 2200 AC 08/31 PO 2256 Enoxaparin Sodium 40 MG DAILY 09/01 1000 AC SC Finasteride 5 MG DAILY 09/01 1000 AC 09/01 PO 1122 Levothyroxine Sodium 0.112 MG DAILY AC 09/01 0700 AC 09/01 PO 0641 Lisinopril 10 MG DAILY 09/01 1000 AC 09/01 PO 1122 Methocarbamol 750 MG Q6-PRN PRN 08/31 1530 AC PO Morphine Sulfate 0 .STK-MED ONE 08/31 1999 DC .ROUTE Morphine Sulfate 1 MG Q4P PRN 08/31 1515 AC 08/31 IV 2001 Polyethylene Glycol 17 GM AT BEDTIME 08/31 2200 AC PO Prochlorperazine 10 MG Q6P PRN 08/31 1515 AC IV Senna/Docusate Sodium 1 TAB AT BEDTIME 08/31 2200 AC 08/31 PO 2256 Sodium Chloride 1,000 ML ONCE ONE 08/31 1530 DC 08/31 IV 09/01 0129 1534 Review of Systems Review of Systems: Review of systems as per HPI. The remainder of a 10 point review of systems was reviewed and was otherwise negative. Past History Travel History Traveled to [place] past 21 day No Medical History Blood Transfusion Hx: No Neurological: PREVIOUS SYNCOPE X 1 EENT: NONE Cardiovascular: hypertension, HIGH CHOLESTEROL Respiratory: NONE Gastrointestinal: NONE Hepatic: NONE Renal: NONE Musculoskeletal: NONE Psychiatric: NONE Endocrine: NONE (HYPOTHYROIDISM) Blood Disorders: NONE Cancer(s): NONE FACILITY SECURITY OFFICER/Reproductive: ENLARGED PROSTATE Surgical History Surgical History: non-contributory Psychosocial History Where Do You Live? Home Who Do You Live With? spouse Services at Home: None Primary Language: Dutch Smoking Status: Never Smoked ETOH Use: occasional use Illicit Drug Use: denies illicit drug use Functional Ability ADLs Independent: dressing, eating, toileting, bathing. Ambulation: walker IADLs Independent: shopping, housework, finances, food prep, telephone, transportation , medication admin. 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 Exam & Diagnostic Data Vital Signs and I&O Vital Signs Date Time Temp Pulse Resp B/P Pulse O2 O2 Flow FiO2 Ox Delivery Rate 09/01 1122 76 122/62 09/01 0805 98.3 68 20 122/64 95 Room Air 01/13 0800 Room Air 09/01 0014 98.1 68 20 108/68 95 Room Air 08/31 2243 98.5 69 20 122/60 95 Room Air 08/31 2126 98.1 73 20 121/68 96 Room Air 08/31 2006 96.9 61 16 110/65 96 08/31 1634 71 121/57 08/31 1634 98.5 71 16 121/57 95 Room Air 08/31 1330 97.0 75 18 116/71 96 Intake & Output 09/01 1600 09/01 0809/01 0000 08/31 1600 08/31 0000 Intake Total 600 60 0 Output Total 900 220 Balance -300 -160 0 Intake, IV 500 Intake, Oral 100 60 0 Number 0 Bowel Movements Output, Urine 900 220 Patient 220 lb 220 lb Weight Physical Exam: General: no apparent distress. Alert. Eyes: No obvious scleral icterus. HEENT: No jugular venous distention or abnormal jugular venous pulsations. Cardiovascular: Normal intensity S1/S2. Regular. Respiratory: Lungs clear to auscultation bilaterally. Abdomen: Soft, nontender with no guarding or rebound tenderness. Musculoskeletal: No clubbing or cyanosis noted, right lower extremity edema noted Skin: Warm Neurologic: No gross focal deficits noted. Lymph: No gross lymphadenopathy. Labs/Colton Results: Laboratory Tests 09/01 08/31 08/31 08/31 0610 1757 1426 1335 Chemistry Sodium (137 - 145 mmol/L) 139 Potassium (3.5 - 5.1 mmol/L) 4.3 Chloride (98 - 107 mmol/L) 102 Carbon Dioxide (22 - 30 mmol/L) 27 Anion Gap (5 - 16) 10 BUN (9 - 20 mg/dL) 15 Creatinine (0.7 - 1.2 mg/dL) 0.9 Estimated GFR (>60 ml/min) > 60 BUN/Creatinine Ratio (7 - 25 %) 16.7 Magnesium (1.6 - 2.3 mg/dL) 2.3 2.3 Troponin I (<0.11 ng/ml) < 0.01 < 0.01 Urines Urine Color (YEL,AMB,STR) YEL Urine Clarity (CLEAR) CLEAR Urine pH (5.0 - 8.0) 6.0 Ur Specific [place] (1.001 - 1.035) 1.010 Urine Protein (NEG,<30 MG/DL) NEG Urine Ketones (NEG) NEG Urine Nitrite (NEG) NEG Urine Bilirubin (NEG) NEG Urine Urobilinogen (0.1 - 1.0 EU/dl) 0.2 Ur Leukocyte Esterase (NEG) NEG Ur Microscopic EXAM NOT REQUIRED Urine Hemoglobin (NEG) NEG Urine Glucose (N MG/DL) NEG 08/31 08/31 1234 1138 Chemistry Sodium (137 - 145 mmol/L) 139 Potassium (3.5 - 5.1 mmol/L) 4.3 Chloride (98 - 107 mmol/L) 99 Carbon Dioxide (22 - 30 mmol/L) 26 Anion Gap (5 - 16) 13 BUN (9 - 20 mg/dL) 16 Creatinine (0.7 - 1.2 mg/dL) 1.0 Estimated GFR (>60 ml/min) > 60 BUN/Creatinine Ratio (7 - 25 %) 16.0 Glucose (65 - 99 mg/dL) 158 H Calcium (8.4 - 10.2 mg/dL) 8.5 Magnesium (1.6 - 2.3 mg/dL) Cancelled 2.3 Total Bilirubin (0.2 - 1.3 mg/dL) 1.2 AST (17 - 59 U/L) 24 ALT (21 - 72 U/L) 27 Alkaline Phosphatase (< 127 U/L) 58 Troponin I (<0.11 ng/ml) < 0.01 Total Protein (6.3 - 8.2 g/dL) 6.1 L Albumin (3.5 - 5.0 g/dL) 3.3 L Globulin (1.9 - 4.2 gm/dL) 2.8 Albumin/Globulin Ratio (1.1 - 2.2 %) 1.2 Hematology CBC w Diff NO MAN DIFF REQ WBC (4.8 - 10.8 /CUMM) 6.3 RBC (4.70 - 6.10 /CUMM) 3.52 L Hgb (14.0 - 18.0 G/DL) 10.9 L Hct (42 - 52 %) 32.4 L MCV (80.0 - 94.0 FL) 92.1 MCH (27.0 - 31.0 PG) 30.9 RDW (11.5 - 14.5 %) 13.3 Plt Count (130 - 400 /CUMM) 178 MPV (7.4 - 10.4 FL) 7.8 Gran % (42.2 - 75.2 %) 72.5 Lymphocytes % (20.5 - 51.1 %) 15.1 L Monocytes % (1.7 - 9.3 %) 8.3 Eosinophils % (0 - 5 %) 3.6 Basophils % (0.0 - 2.0 %) 0.5 Absolute Granulocytes (1.4 - 6.5 /CUMM) 4.5 Absolute Lymphocytes (1.2 - 3.4 /CUMM) 0.9 L Absolute Monocytes (0.10 - 0.60 /CUMM) 0.5 Absolute Eosinophils (0.0 - 0.7 /CUMM) 0.2 Absolute Basophils (0.0 - 0.2 /CUMM) 0 PUBS MCHC (33.0 - 37.0 G/DL) 33.5 Diagnostic Data EKG Results Tracing was personally reviewed and shows SR at 72 bpm with IVCD CXR Results IMPRESSION: No active disease on this portable study. Other Results 1. No evidence of pulmonary embolism. 2. 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 3. Severe coronary artery calcifications. 4. Multiple hepatic cysts and benign-appearing right adrenal mass, likely a small lipid rich adenoma versus focal nodular hypertrophy. 5. Small retrocardiac hiatal hernia. 6. 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 Assessment/Plan Assessment/Plan 1. Syncope, likely orthostatic versus vasovagal episode 2. Recent elective TKR 3. Hx mild aortic dilatation 4. Hx CAD/silent ME by Nuclear stress 5. HTN/HLD Patient's brief LOC with transient hypotension while doing new physical therapy exercise is consistent with orthostatic versus vasovagal episode, now resolved. No evidence of ACS, PE, obstructive carotid stenosis, or stroke at this time. Telemetry shows no significant events. ECG has IVCD which is chronic. No further inpatient cardiac work-up is required at this time. He should follow-up with us within 1 week of discharge for continued evaluation but will return to the ER via 911 with any new or recurrent symptoms. Discussed LE exercises prior to standing to help prevent orthostasis. Poncho Logan MD FACC Consult Acknowledgment - Thank you for your consult request.
--- NOTE | 2016-09-01 14:21 | ELECTROENCEPHALOGRAM REPORT ---
Electroencephalogram Report ELECTROENCEPHALOGRAM RESULTS Date of service: 09/01/16 Ordering Provider: Dk Nelson MD CORK COMPOUNDER: SHALOM Baum EEG NUMBER: [id number] TEST UTILIZES: 10-20 system, 21-lead 18 channel digital EEG recording PERTINENT HX/PHYSICAL/NEURO FINDINGS/CLINICAL DIA-year-old patient being evaluated for seizure versus syncope MEDICATIONS: Finasteride, amlodipine, lisinopril, aspirin, levothyroxine, atorvastatin INTERPRETATION: The background is composed of well-formed moderate amplitude posterior 9 Hz alpha which attenuates on eye opening. Low voltage faster beta activity is intermixed and seen best in the frontal regions. There are no focal, lateralized or epileptiform abnormalities. In drowsiness there is intermixed slower theta activity. Hyperventilation was deferred but photic stimulation was performed and adds no additional information IMPRESSION: Normal EEG in the states of wakefulness and drowsiness. No focal or epileptiform abnormalities identified.
--- NOTE | 2016-09-01 17:18 | Discharge Summary ---
Visit Information Visit Dates Admission Date: 08/31/16 Discharge Date: 09/01/16 Hospital Course Course Attending Physician: ABDULKADIR CONNER MD Primary Care Physician: SAJAN WHEELER MD Hospital Course: Mr Ng is a 81-year-old gentleman with past medical history of hypothyroidism, hyperlipidemia and hypertension who presented to the emergency department following a syncopla event when undergoing an intensive physical therapy session. He was admitted to our service and below is a summary of the care he received under us. #Syncopal event likely caused by vasovagal episode The patient was admitted to the telemetry service for continuous monitoring. We continued the patient on his Aspirin and Atorvastatin. On day two of admission, we obtained a cardiology consultation, who recommended no further cardiac work up was warranted. The patient was discharged with instructions to follow up within one week. While the patient was also admitted, he also underwent an EEG, this showed no evidence of any focal or epileptiform abnormalities. Prior to discharge, the patient orthostatics were checked. These were negative. #Right knee pain status post recent knee replacement. Owing to the fact that the patient recently got a knee replacement, we managed the patients pain with a combination of Vicodin and Tylenol. The patient also underwent a CTA to rule out a PE given his risk factors. Prior to discharge, the patient worked with physical therapy. #History coronary artery disease and mild aortic dilatation We trended the patients serial troponins and EKG. His troponins were non contributory and EKGs did not revel any evidence of ischemic changes. #History of hypothyroidism We continued the patient on his daily dose of Levothyroxine 0.112 mg. #History of hypertension We continued the patient on his daily dose of Lisinopril 10 mg. #History of BPH We continued the patient on Finasteride 5mg. Allergies: Coded Allergies: No Known Allergies (08/31/16) Pertinent Lab Results: [place] [address] DEPARTMENT OF NEUROLOGY ELECTROENCEPHALOGRAM REPORT Patient Name: JACKELIN NG Location: [facility] Date of : 35 Unit Number: [id number] Sex: M Age: 81 Electroencephalogram Report ELECTROENCEPHALOGRAM RESULTS Date of service: 09/01/16 Ordering Provider: Dk Nelson MD ADMINISTRATIVE COORDINATOR: SHALOM Baum EEG NUMBER: [id number] TEST UTILIZES: 10-20 system, 21-lead 18 channel digital EEG recording PERTINENT HX/PHYSICAL/NEURO FINDINGS/CLINICAL DIA-year-old patient being evaluated for seizure versus syncope MEDICATIONS: Finasteride, amlodipine, lisinopril, aspirin, levothyroxine, atorvastatin INTERPRETATION: The background is composed of well-formed moderate amplitude posterior 9 Hz alpha which attenuates on eye opening. Low voltage faster beta activity is intermixed and seen best in the frontal regions. There are no focal, lateralized or epileptiform abnormalities. In drowsiness there is intermixed slower theta activity. Hyperventilation was deferred but photic stimulation was performed and adds no additional information IMPRESSION: Normal EEG in the states of wakefulness and drowsiness. No focal or epileptiform abnormalities identified. DICTATED BY: HORACE ARELLANO,NENA Cooper DATE/TIME DICTATED:09/01/161413 APPLIANCE SERVICE REPRESENTATIVE:CARLOS DATE/TIME TRANSCRIBED:09/01/161413 REPORT NUMBER:[id number] CONFIDENTIAL, DO NOT COPY WITHOUT APPROPRIATE AUTHORIZATION. <Electronically signed by NENA VU MD> 09/01/16 1421 CC: SAJAN WHEELER MD Order #: Accession #: Report #: [id number] Page[p pg] Patient Name: JACKELIN NG Location: [facility] Date of : 35 Unit Number: [id number] Sex: M Age: 81 Electroencephalogram Report ELECTROENCEPHALOGRAM RESULTS Date of service: 09/01/16 Ordering Provider: Dk Nelson MD ADMINISTRATIVE COORDINATOR: SHALOM Baum EEG NUMBER: [id number] TEST UTILIZES: 10-20 system, 21-lead 18 channel digital EEG recording PERTINENT HX/PHYSICAL/NEURO FINDINGS/CLINICAL DIA-year-old patient being evaluated for seizure versus syncope MEDICATIONS: Finasteride, amlodipine, lisinopril, aspirin, levothyroxine, atorvastatin INTERPRETATION: The background is composed of well-formed moderate amplitude posterior 9 Hz alpha which attenuates on eye opening. Low voltage faster beta activity is intermixed and seen best in the frontal regions. There are no focal, lateralized or epileptiform abnormalities. In drowsiness there is intermixed slower theta activity. Hyperventilation was deferred but photic stimulation was performed and adds no additional information IMPRESSION: Normal EEG in the states of wakefulness and drowsiness. No focal or epileptiform abnormalities identified. DICTATED BY: NENA VU MD SERVICE DATE: 08/31/16 EXAM TYPE: CAT - CTA CHEST-PULMONARY EMBOLISM EXAMINATION: CT CHEST PE STUDY CLINICAL INFORMATION: Syncope. Hypotension. 8 days postop right knee replacement. Evaluate for pulmonary embolism. COMPARISON: CTA of the chest dated 02/06/2015. TECHNIQUE: Prior to contrast administration, localization images were obtained. After the administration of 120 mL of intravenous Optiray 350, multidetector CT volume acquisition of the chest was performed. 3-D postprocessing was performed with multiplanar reconstructions and MIP images obtained at the acquisition workstation. DLP: 617.61 mGy-cm. FINDINGS: Pulmonary arteries: The bolus timing on this study was acceptable for visualization of the pulmonary arterial tree. There are no intraluminal pulmonary arterial filling defects present to suggest pulmonary embolism in the main pulmonary artery, right and left main pulmonary artery, lobar and segmental branches. Lungs: Minimal bibasilar dependent atelectasis. The lungs are otherwise clear. No pulmonary nodules, masses, pleural effusion or pneumothorax. The central airways are patent. Aorta and heart: The heart is normal in size. There is no pericardial effusion. There is ectasia of the ascending aorta, which measures 3.9 cm in maximal AP diameter at the level of the right main pulmonary artery. Mild atherosclerotic calcifications of the aorta and severe three-vessel coronary artery calcifications are noted. Lymphatic structures: There is no lymphadenopathy. Upper abdomen: There are multiple variably sized low-attenuation masses seen throughout the right and left lobes of the liver, similar to the previous exam, most likely representing multiple small cysts. Largest of these is seen in hepatic segment 8, measuring 4.1 x 2.6 cm. There is a ill-defined 1.6 x 1.2 cm right adrenal low-attenuation mass, similar to the previous study, possibly representing a tiny lipid rich adenoma versus focal nodular hypertrophy. The left adrenal gland is unremarkable. Limited evaluation of the upper abdominal viscera demonstrates no focal abnormality. There is a small retrocardiac hiatal hernia. Bones: There are advanced degenerative changes in both shoulder joints. There is abnormal distention of the right subcoracoid bursa with fluid and a tiny calcific density, possibly representing a small loose body. There is also fluid distention of the right bicipital tendon sheath with small calcifications/ossifications, consistent with small loose bodies. On the left side, there is a fluid collection seen in the subscapularis recess with associated loose bodies. There is also slight fluid distention of the left bicipital tendon sheath with associated small loose bodies. Multilevel mild vertebral spondylosis throughout the thoracic spine. No suspicious bone findings. IMPRESSION: 1. No evidence of pulmonary embolism. 2. 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 3. Severe coronary artery calcifications. 4. Multiple hepatic cysts and benign-appearing right adrenal mass, likely a small lipid rich adenoma versus focal nodular hypertrophy. 5. Small retrocardiac hiatal hernia. 6. 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 DICTATED BY: JUAN ALBERTO ARELLANO,LUIS Beckman SERVICE DATE: 08/31/16-1134 EXAM TYPE: RAD - XRY-PORTABLE CHEST XRAY EXAMINATION: XR PORTABLE CHEST CLINICAL INFORMATION: This is an 81-year-old male with syncope. COMPARISON: Comparison is made to a CT scan of the chest dated 02/06/2015 and a chest x-ray dated 02/05/2015. TECHNIQUE: Portable view of the chest was obtained. A single AP semierect view was obtained. FINDINGS: No pneumothorax is seen. No pleural effusion is identified. No pulmonary consolidation is identified. The pulmonary vascularity appears within normal limits for the technique. IMPRESSION: No active disease on this portable study. DICTATED BY: SABIHA PEREZ MD SERVICE DATE: 08/31/16- EXAM TYPE: US - [id number] DOPPLER EXAMINATION: DUPLEX BILATERAL CAROTID ULTRASOUND CLINICAL INFORMATION: Syncope COMPARISON: None. TECHNIQUE: Duplex bilateral carotid US was performed using real-time ultrasound and Doppler techniques (integrating B-mode 2D vascular images, Doppler spectral analysis and color flow Doppler imaging). These techniques were utilized to interrogate the extracranial carotid and vertebral arteries bilaterally. The degree of stenosis is based off criteria similar to NASCET. FINDINGS: 1. On the right: No plaque is present at the carotid bifurcation and all velocity measurements are normal and do not suggest a stenosis of greater than 50% diameter reduction in the right ICA. The vertebral artery is patent demonstrating antegrade flow. The external carotid on the right shows no significant stenosis. 2. On the left: Plaque is present at the carotid bifurcation but velocity measurements are normal and do not suggest a stenosis of greater than 50% diameter reduction in the left ICA. The vertebral artery is patent demonstrating antegrade flow. The external carotid artery on the left shows no significant stenosis. IMPRESSION: There is plaque present in the left internal carotid artery with normal velocities consistent with a minimal 0-49% stenosis. The right side is normal with no plaque seen. DICTATED BY: SHAKIRA REYNOLDS MD Disposition Summary Disposition Principal Diagnosis: #Syncopal event likely caused by vasovagal episode Additional Diagnosis: #Right knee pain status post recent knee replacement. #History coronary artery disease and mild aortic dilatation #History of hypothyroidism #History of hypertension #History of BPH Discharge Disposition: home or self care Discharge Instructions General Discharge Information Code Status: Full Code Patient's Diet: Heart Healthy Patient's Activity: As Tolerated Follow-Up Instructions/Appts: Please follow-up with your primary care physician on 09/04/2016. This is for a post hospital discharge follow-up. Please follow-up with the beauty sales consultant Dr Morales on 09/08/2016. We have provided you with a referral. You might be considered for additional testing. Please follow-up with the Neurologist Dr Vu on 09/15/2016. We have provided you with a referral. You might be considered for additional testing. Medications at Discharge Discharge Medications: Stop taking the following medications: Amlodipine Besylate (Amlodipine Besylate) 2.5 MG TABLET ORAL DAILY Qty = 90 Continue taking these medications: Atorvastatin Calcium (Lipitor) 40 MG TABLET 1 Tablet ORAL Every night Finasteride (Finasteride) 5 MG TABLET 1 Tablet ORAL DAILY Qty = 30 Comments: PER PT Lisinopril (Lisinopril) 10 MG TABLET 1 Tablet ORAL DAILY Qty = 90 Comments: PER PT Levothyroxine Sodium (Levothyroxine Sodium) 0.112 MG TAB 1 Tablet ORAL DAILY BEFORE BREAKFAST Qty = 90 Comments: PER PT Aspirin (Ecotrin) 81 MG TABLET. 1 Tablet ORAL DAILY Comments: PER PT Oxycodone HCl (Oxycodone HCl) 5 MG TABLET 1 Tablet ORAL 2 x Daily as needed as needed for PAIN Qty = 60 Tramadol HCl (Tramadol HCl) 50 MG TABLET 1 Tablet ORAL 2 x Daily as needed as needed for PAIN Qty = 60 Methocarbamol (Robaxin-750) 750 MG TABLET 1 Tablet ORAL EVERY 6 HOURS NEEDED as needed for MUSCLE SPASMS Qty = 60 Copies To: HORACE ARELLANO,NENA Cooper; FAROOQ ARELLANO,JAYJAY; LIAM ARELLANO,SAJAN Mcgowan Attending MD Review Statement Documenting Attending: ABDULKADIR CONNER MD Other Findings: The patient was seen and agree with the plan of care as outlined.
== END 2016-09-01 15:05 | disposition home health service (06) ==
LOC: ENRESERVDT → ENRESERVTM → ERH 11:18 → ERHI 17:13 → ENPENDDIS 17:13 → 1NO 17:13
PROVIDERS: Emergency Medicine; ADMIT Internal Medicine
DX: R55 Syncope and collapse (principal); I10 Essential (primary) hypertension; E03.9 Hypothyroidism, unspecified; E78.5 Hyperlipidemia, unspecified; M25.561 Pain in right knee; N40.0 Benign prostatic hyperplasia without lower urinary tract symptoms; I25.10 Atherosclerotic heart disease of native coronary artery without angina pectoris
CPT/HCPCS: 2000; 6020; 81003; 82436; 87040; 87086; 93005; 93010; 95816; 96374; 97110-GP; 97116-GP; 97161-GP; G0378; G8978-GP; G8979-GP; G8980-GP; J0780; J1650